=== PATIENT | male | born 1975 | race Caucasian/White ===

== ENCOUNTER 2022-09-03 18:59 | Emergency (ER) | payer OTHER, SELFPAY ==
[2022-09-03] VITALS (10 sets, daily range): BP systolic 162–183; BP diastolic 80–100; PULSE 50–56; RESP 18; TEMP 36.3; O2SAT 91–100; BMI 29.8
--- NOTE | 2022-09-03 19:22 | DI.CT.S_ITS ---
PROCEDURE: CT SINUS SCREEN WO CON INDICATIONS: ? sinusitis, eyeball pressure TECHNIQUE: Noncontrast 3.0 mm axial images acquired from the frontal sinuses to the mid-sella, with coronal and sagittal reformats. For radiation dose reduction, the following was used: automated exposure control, adjustment of mA and/or kV according to patient size. COMPARISON: None. FINDINGS: Image quality: Excellent. Maxillary Sinuses: Right maxillary sinus is well aerated. Complete opacification of left maxillary sinus is seen with erosion of medial wall of left maxillary sinus. Ethmoid Air Cells: Moderate opacification of left ethmoid air cells are seen. No bony remodeling or destruction. Right ethmoid air cells are clear. Sphenoid Sinuses: No bony remodeling or destruction. Sinuses are clear. Frontal Sinuses: No bony remodeling or destruction. Sinuses are clear. Ostiomeatal Complexes: There is occlusion of left ostiomeatal complex. The right ostiomeatal complex is patent. No Mariia cells. Miscellaneous: Visualized intra-orbital contents are normal. No rayna bullosa or paradoxical turbinate curvature. No nasal septal deviation. IMPRESSION: 1. Complete opacification of left maxillary sinus and moderate opacification of left ethmoid sinus with mild erosion/remodeling involving medial wall of left maxillary sinus suggestive of left-sided sinusitis. 2. Occlusion of left ostiomeatal complex. 3. Right paranasal sinuses are well aerated. Dictated by: Denys Hoffmann M.D. on 09/03/2022 at 19:53 Approved by: Denys Hoffmann M.D. on 09/03/2022 at 19:56
[2022-09-03] MEDS: SODIUM CHLORIDE 0.9% 1,000 ML 1000 ML IV (19:49)
[2022-09-03] MEDS: KETOROLAC 30 MG/ML VIAL 15 MG IV (19:49)
[2022-09-03] MEDS: DEXAMETHASONE 10 MG/ML VIAL IV (19:50)
[2022-09-03] MEDS: diphenhydrAMINE 50 MG/ML VIAL 25 MG IV (19:50)
[2022-09-03] MEDS: METOCLOPRAMIDE 10 MG/2 ML INJ IV (19:50)
[2022-09-03 20:05] LABS: Add Manual Diff / Slide Review NO; Basophils Absolute Auto 100 /uL (0-100); Basophils Percent Auto 0.4 % (0-2); Eosinophils Absolute Auto 200 /uL (0-450); Eosinophils Percent Auto 0.9 % (2-4); Hematocrit 46.9 % (41-53); Hemoglobin 15.7 g/dL (13.5-17.5); Lymphocytes Absolute Auto 2200 /uL (1100-4500); Lymphocytes Percent Auto 11.9 % (25-40); Mean Corpuscular HGB Conc 33.5 % (30-36); Mean Corpuscular Hemoglobin 26.9 PG (26-34); Mean Corpuscular Volume 80.1 fL (80-100); Monocytes Absolute Auto 1500 /uL (0-900); Neutrophils Absolute Auto 14300 /uL (1500-7000); Neutrophils Percent Auto 78.8 % (50-75); Platelet Count 418 X10^3/uL (150-400); Red Blood Cell Count 5.86 X10^6/uL (4.5-5.9); Red Cell Distribution Width 13.3 % (11.6-14.8); White Blood Cell Count 18.2 X10^3/uL (4.5-11.0)
[2022-09-03 20:09] LABS: BUN Creatinine Ratio 14.6 (6-22); Bilirubin Total 0.4 mg/dL (0.2-1.3); Blood Urea Nitrogen 14 mg/dL (9-20); Estimated Glomerular Filt Rate > 60 mL/min (>60); HEMOLYSIS < 15 (0-50)
[2022-09-03 20:27] LABS: Procalcitonin 0.77 ng/mL (<0.5)
[2022-09-03 20:31] LABS: Alanine Aminotransferase 24 IU/L (<50); Albumin 3.8 g/dL (3.5-5.0); Albumin Globulin Ratio 1.3 (1.0-2.8); Alkaline Phosphatase 71 U/L (38-126); Aspartate Aminotransferase 19 IU/L (17-59); Calcium 9.5 mg/dL (8.4-10.2); Carbon Dioxide 30 mmol/L (22-32); Chloride 103 mmol/L (98-107); Glucose 107 mg/dL (70-100); Sodium 140 mmol/L (137-145); Total Protein 6.8 g/dL (6.3-8.2)
--- NOTE | 2022-09-03 22:12 | ED.GENADULT ---
HPI - General Adult General Chief complaint: Upper Respiratory Symptoms Stated complaint: Sinus inf Time Seen by Provider: 09/03/22 19:22 Source: patient Mode of arrival: Ambulatory History of Present Illness HPI narrative: 47-year-old gentleman who presents with complaints of persistent headache getting worse over the last month. Was seen at urgent care about a week ago diagnosed with sinusitis based on symptoms started on amoxicillin and he has 1 day left of this. He was also given a Medrol Dosepak has been using Sudafed, ibuprofen and Tylenol. He is not complaining of dizziness but he does note persistent headache and feels like his left eyeball is being pushed out due to the pain. He describes low-grade fevers, no cough, chills, vomiting or abdominal pain Related Data Previous Rx's Medication Instructions Recorded amoxicillin 875 mg-potassium 1 tab PO BID #20 tabs 09/03/22 clavulanate 125 mg tablet Allergies Allergy/AdvReac Type Severity Reaction Status Date / Time No Known Drug Allergies Allergy Verified 09/03/22 19:13 Review of Systems Review of Systems Narrative: Pertinent positive and negative findings as per HPI Patient History tobacco type: vaping Substance Use Type: does not use Exam Initial Vital Signs Initial Vital Signs: Vital Signs Temperature 97.3 F L 09/03/22 19:13 Pulse Rate 54 L 09/03/22 19:13 Respiratory Rate 18 09/03/22 19:13 Blood Pressure 183/100 H 09/03/22 19:13 Pulse Oximetry 100 09/03/22 19:13 Oxygen Delivery Method Room Air 09/03/22 19:13 General: Healthy appearing, in mild pain. Able to give a complete and coherent history. Well-nourished well-developed HEENT: Moist mucous membranes, normal sclera with reactive pupils, fullness over the left maxilla. Tympanic membranes are unremarkable Neck: No cervical adenopathy, supple Respiratory: Lungs are clear to auscultation, no wheezing no rales no rhonchi. Full and symmetrical air movement Cardiac: Regular rate and rhythm no murmurs no bruits Abdomen: Soft, nontender, good bowel tones, no flank pain Skin: Warm and dry, no rashes Neurologic: Grossly neurologically intact with no obvious asymmetries or abnormalities Psych: Cooperative, appropriate insight and affect Course Orders Ordered: ED Orders 09/03/22 19:22 CT sinus screen wo con Stat 09/03/22 19:47 Complete Blood Count AUTO DIFF Stat Comprehensive Metabolic Panel Stat Procalcitonin Stat Discontinued Medications Dexamethasone (Dexamethasone 10 Mg/Ml Vial) 10 mg IV NOW ONE Stop: 09/03/22 19:25 Last Admin: 09/03/22 19:50 Dose: 10 mg Documented By: DUSTY Diphenhydramine HCl (Diphenhydramine 50 Mg/Ml Vial) 25 mg IV NOW ONE Stop: 09/03/22 19:25 Last Admin: 09/03/22 19:50 Dose: 25 mg Documented By: DUSTY Sodium Chloride (Normal Saline 0.9%) 1,000 mls @ 1,000 mls/hr IV BOLUS ONE Stop: 09/03/22 20:23 Last Infusion: 09/03/22 21:09 Dose: 0 mls/hr Documented By: Admin: 09/03/22 19:49 Dose: 1,000 mls/hr Documented By: DUSTY Ketorolac Tromethamine (Ketorolac 30 Mg/Ml Vial) 15 mg IV NOW ONE Stop: 09/03/22 19:25 Last Admin: 09/03/22 19:49 Dose: 15 mg Documented By: DUSTY Metoclopramide HCl (Metoclopramide 10 Mg/2 Ml Inj) 10 mg IV NOW ONE Stop: 09/03/22 19:25 Last Admin: 09/03/22 19:50 Dose: 10 mg Documented By: DUSTY Vital Signs Vital signs: Vital Signs - 8 hr 09/03/22 19:13 09/03/22 19:27 09/03/22 19:27 Temperature 97.3 F L Pulse Rate 54 L Respiratory Rate 18 Blood Pressure 183/100 H 173/99 H Pulse Oximetry 100 91 Oxygen Delivery Method Room Air 09/03/22 19:30 09/03/22 20:00 09/03/22 20:30 Temperature Pulse Rate 52 L 53 L 50 L Respiratory Rate 18 Blood Pressure Pulse Oximetry 97 99 97 Oxygen Delivery Method Room Air Medical Decision Making Lab Data 09/03/22 19:47 09/03/22 19:47 Labs: Lab Results 09/03/22 09/03/22 Range/Units 19:47 19:47 WBC 18.2 H (4.5-11.0) X10^3/uL RBC 5.86 (4.5-5.9) X10^6/uL Hgb 15.7 (13.5-17.5) g/dL Hct 46.9 (41-53) % MCV 80.1 (80-100) fL MCH 26.9 (26-34) PG MCHC 33.5 (30-36) % RDW 13.3 (11.6-14.8) % Plt Count 418 H (150-400) X10^3/uL Neut % (Auto) 78.8 H (50-75) % Lymph % (Auto) 11.9 L (25-40) % [place] % (Auto) 8.0 (3-14) % Eos % (Auto) 0.9 L (2-4) % Baso % (Auto) 0.4 (0-2) % Neut # (Auto) 31373 H (2982-2936) /uL Lymph # (Auto) 2200 (8754-9067) /uL [place] # (Auto) 1500 H (0-900) /uL Eos # (Auto) 200 (0-450) /uL Baso # (Auto) 100 (0-100) /uL Sodium 140 (137-145) mmol/L Potassium 4.0 (3.4-5.1) mmol/L Chloride 103 (98-107) mmol/L Carbon Dioxide 30 (22-32) mmol/L BUN 14 (9-20) mg/dL Creatinine 0.96 (0.66-1.25) mg/dL Estimated GFR > 60 (>60) mL/min BUN/Creatinine Ratio 14.6 (6-22) Glucose 107 H (70-100) mg/dL Calcium 9.5 (8.4-10.2) mg/dL Total Bilirubin 0.4 (0.2-1.3) mg/dL AST 19 (17-59) IU/L ALT 24 (<50) IU/L Alkaline Phosphatase 71 (38-126) U/L Total Protein 6.8 (6.3-8.2) g/dL Albumin 3.8 (3.5-5.0) g/dL Globulin 3.0 (1.7-4.1) g/dL Albumin/Globulin Ratio 1.3 (1.0-2.8) Procalcitonin 0.77 H (<0.5) ng/mL MDM Narrative Medical decision making narrative: CC: Headache with left facial and eye pain. Acute issue uncertain prognosis Complicating co-morbidities: Currently on antibiotics and steroids for an acute sinus infection Data collected from: patient, Differential considered: Migraine, acute sinusitis, retro-orbital abscess Exam documented above, pertinent findings include: Fullness over the left maxilla, extraocular eye movements are unremarkable. Normal neurologic exam Lab Test results independently reviewed as above. Pertinent findings: CBC is 18.2 otherwise unremarkable Procalcitonin is elevated at 0.77 Chemistries are unremarkable Imaging studies independently reviewed: Sinus CT is ordered and shows complete opacification of the left maxillary sinus with erosion of the medial wall of the left maxillary sinus. Occlusion of the left ostiomeatal complex. No retro-orbital abnormalities Treatments: Parenteral fluids, Reglan, Benadryl, Toradol are given to help with the acute headache. He has just completed a course of oral dexamethasone so steroids are not added. After review of lab work and CT scan he is given a dose of ceftriaxone Re-evaluations: Patient is feeling better after initial treatments. Given a month of symptoms, a week of oral antibiotics and CT confirmed acute sinusitis will change him to Augmentin for the next 10 days. Additional steroids are not indicated, there is no indication of retro-orbital abscess developing or meningitis. No suggestion of sepsis. Did discuss nasal saline washes at this point, with slight reduction in the inflammation secondary to the steroids he may find that they are more effective. Clearly reviewed complications of sinus infections and reasons to return to the emergency department. He is safe for discharge home Additional Information: MIPS Antibiotic use with Sinusitis The patient has sinusitis with symptom onset greater than 10 days ago and the patient was prescribed antibiotics. Patient was prescribed an amoxicillin-based antibiotic. Discharge Plan Departure Patient Disposition: Home Clinical Impression: Acute bacterial sinusitis, Elevated blood pressure reading Headache Qualifiers: Headache type: unspecified Headache chronicity pattern: acute headache Intractability: not intractable Qualified Code(s): R51.9 - Headache, unspecified Instructions: DI for Sinusitis Activity Restrictions/Additional Instructions: Thank you for coming in today Your blood work suggests significant infection and the CT scan of your sinuses does show a significant left acute sinusitis that does not seem to have improved after the week of oral antibiotics. With your white blood cell count significantly elevated and the headache that has been intermittently present for the last month I have given you a dose of IV antibiotics and I am going to suggest that we change your oral antibiotics to Augmentin for an additional 10 days. The antibiotic prescription was electronically transmitted to [facility] in [place] Please do continue with Sudafedand nasal saline rinses. Using 400 mg of ibuprofen (2 [id number] pills) and 1 Tylenol every 6 hours can be very helpful in controlling pain. Your blood pressure was elevated today. I suspect this is because you are feeling unwell in hurting however, it was high enough that checking your blood pressure when you are feeling better at home is going to be appropriate. If it continues to consistently be above 120/70 I would encourage you to talk to your primary care doctor If you find that you are getting worse or develop any new symptoms, please feel free to return to the emergency department for further evaluation. Prescriptions: New amoxicillin-pot clavulanate 875-125 mg tablet 1 tab PO BID Qty: 20 0RF Stand Alone Forms: Patient Portal/API
[2022-09-03] MEDS: cefTRIAXone 2,000 MG in SODIUM CHLORIDE 0.9% 100 ML 200 MG IV (22:24)
== END 2022-09-03 22:41 | disposition home or self-care (01) ==
PROVIDERS: Emergency Provider Emergency Medicine
DX: R51.9 Headache, unspecified (principal); J01.80 Other acute sinusitis; R03.0 Elevated blood-pressure reading, without diagnosis of hypertension
CPT/HCPCS: 36415; 70486; 80053; 84145; 85025; 96365; 96375; 99284; J0696; J1100; J1200; J1885; J2765